=== PATIENT | female | born 2000 | race Caucasian/White ===

== ENCOUNTER → 2021-06-11 01:33 | Observation (INO) ==
[~2021-06-11 01:33] MED LIST: Ringers Solution, Lactated 1,000 ML IVC SCH
[2021-06-11 01:56] LABS: Amorphous Sediment,Urine Few per hpf (None-Few); Bilirubin,Urine Negative (Negative); Blood,Urine Negative (Negative); Clarity,Urine Turbid (Clear); Color,Urine Light-Yellow (Yellow); Glucose,Urine (UA) Normal (Normal); Ketones,Urine Negative (Negative); Leukocyte Esterase,Urine Negative (Negative); Mucus,Urine Few per lpf (None-Few); Nitrite,Urine Negative (Negative); Protein,Urine Negative (Neg-Trace); RBC,Urine 0-3 per hpf (0-3); Specific Gravity,Urine 1.013 (1.010-1.025); Squamous Epithelial Cell,Urine Few per hpf (None-Few); Transitional Epi Cells,Urine Few per hpf (None-Few); Urobilinogen,Urine Normal (Normal); WBC,Urine 0-3 per hpf (0-3)
== END | disposition home or self-care (01) ==
LOC: 1NENULAB
PROVIDERS: ADMIT Advanced Practice Midwife; ATTEND Advanced Practice Midwife

== ENCOUNTER 2021-06-26 23:54 | Inpatient (IN) ==
[~2021-06-26 23:54] MED LIST changes: +*HR* Nalbuphine 10 MG/ML AMPUL IV PRN; +Famotidine 20 MG/2 ML VIAL IVP PRN; +Metoclopramide 10 MG/2 ML VIAL IVP PRN; +Naloxone 0.4 MG/ML INJ IVP PRN; +Ondansetron 4 MG/2 ML VIAL IVP PRN; +Oxytocin 20 units/ LR 1000 mL 20 UNIT/1,000 ML BAG IVC SCH
[2021-06-27 00:55] LABS: Amphetamine Screen,Urine Negative ng/mL (Cutoff=1000); Barbiturate Screen,Urine Negative ng/mL (Cutoff=200); Benzodiazepines Screen,Urine Negative ng/mL (Cutoff=200); Cannabinoid Screen,Urine Negative ng/mL (Cutoff = 50); Cocaine Screen,Urine Negative ng/mL (Cutoff= 300); Opiate Screen,Urine Negative ng/mL (Cutoff=300); Phencyclidine Screen,Urine Negative ng/mL (Cutoff=25)
[2021-06-27 01:11] LABS: Basophils % 0.3 %; Eosinophils # 0.1 K/mcL (0.0-0.6); Eosinophils % 0.7 %; Hematocrit 35.6 % (35.3-44.9); Hemoglobin 11.2 g/dL (11.5-15.4); Immature Granulocytes % 0.7 % (0-4); Lymphocytes # 2.1 K/mcL (0.6-4.6); Lymphocytes % 20.9 %; Mean Corpuscular HGB Conc 31.5 g/dL (31.6-35.5); Mean Corpuscular Hemoglobin 25.2 pg (28.0-33.3); Mean Platelet Volume 11.6 fL (9.4-12.4); Monocytes # 0.8 K/mcL (0.0-1.3); Neutrophils # 7.1 K/mcL (1.6-8.9); Platelet Count 256 K/mcL (140-400); Red Blood Count 4.45 M/mcL (3.82-4.97); Red Cell Distribution Width 15.1 % (11.5-14.5); Segmented Neutrophils % 69.4 %; White Blood Count 10.2 K/mcL (4.3-11.1)
[2021-06-27 01:35] LABS: Influenza A PCR Negative (Negative); Influenza B PCR Negative (Negative); Resp. Syncytial Virus PCR Negative (Negative)
[2021-06-27 01:37] LABS: SARS-CoV-2 by PCR (In House) Negative (Negative)
[2021-06-27] MEDS ORDERED: EPHEDrine 50 MG/ML VIAL IVP PRN (03:49)
[2021-06-27] MEDS ORDERED: Epidural Premix (fent/bupiv) 110 ML EP ONE (03:53)
[2021-06-27] MEDS ORDERED: Epidural Premix (fent/bupiv) 110 ML EP SCH (04:00)
[2021-06-27] MEDS ORDERED: *HR* Oxytocin 10 UNIT/ML VIAL IM STA (08:16)
[2021-06-27] MEDS ORDERED: Measles/Mumps/Rubella Vacc 0.5 ML VIAL SQ PRN (08:17)
[2021-06-27] MEDS ORDERED: Oxytocin 20 units/ LR 1000 mL 20 UNIT/1,000 ML BAG IVC SCH (08:17)
[2021-06-27] MEDS ORDERED: Ondansetron ODT 4 MG TAB.RAPDIS SL PRN (08:17)
[2021-06-27] MEDS ORDERED: Benzocaine/Menthol 56 GM AEROSOL SPRAY TP PRN (08:17)
[2021-06-27] MEDS ORDERED: Lanolin 7 G OINT...G. TP PRN (08:17)
[2021-06-27] MEDS ORDERED: *HR* Oxytocin 10 UNIT/ML VIAL IM ONE (08:19)
[2021-06-27] MEDS ORDERED: Prenatal Vit/FA 1 EACH TABLET PO SCH (09:00)
[2021-06-27] MEDS: Ibuprofen 600 MG TABLET PO SCH ×3 (10:38→22:35)
[2021-06-27] MEDS: Acetaminophen 325 MG TABLET PO SCH ×3 (10:38→22:35)
[2021-06-27 17:53] VITALS: O2SAT 98
[2021-06-28] MEDS: Ibuprofen 600 MG TABLET PO SCH (04:21)
[2021-06-28] MEDS: Acetaminophen 325 MG TABLET PO SCH (04:21)
[2021-06-28 07:58] VITALS: BP 121/76; PULSE 67; TEMP 97.9
== END 2021-06-28 11:30 | disposition home or self-care (01) | DRG 560 ==
LOC: 1NENULAB → 1NENUOBS 06-27 09:54
PROVIDERS: ADMIT Advanced Practice Midwife; ATTEND Advanced Practice Midwife